=== PATIENT | female | born 1945 | race Caucasian/White ===

== ENCOUNTER 2018-12-29 10:08 | Inpatient (IN) | payer OTHER ==
[~2018-12-29] VITALS: Ht 162.6 cm; Wt 76.2 kg
[2019-01-01] MEDS ORDERED: CLARITIN10 M2 PO (11:43)
[2019-01-07] MEDS ORDERED: INTEGRA PLUS C1 EACH PO (08:10)
[2019-01-07] MEDS ORDERED: XARELTO10 MG PO (08:10)
[2019-01-07] MEDS ORDERED: OXYC1TAB9 PO (08:10)
== END 2019-01-07 18:24 | DRG 470 ==
LOC: SURG 01-04 05:55 → O/R 01-04 05:55 → SURH 01-04 10:30 → EDBD 01-04 10:30 → SURG 01-04 19:49
PROVIDERS: ADMIT Orthopaedic Surgery Sports Medicine
PROC: 0SRC0J9 Replacement of Right Knee Joint with Synthetic Substitute, Cemented, Open Approach (ICD-10-PCS; principal; 2019-01-04 10:30)
DX: M17.11 Unilateral primary osteoarthritis, right knee (principal); Z96.651 Presence of right artificial knee joint